=== PATIENT | female | born 1945 | race Caucasian/White ===

== ENCOUNTER 2018-01-03 10:26 | Outpatient (CLI) | payer MEDICARE, MEDICAID ==
--- NOTE | 2018-01-03 15:48 | Diagnostic Imaging Report ---
Clinical Indication: Cough, shortness of breath, wheezing Technique: Spiral acquisitions obtained through the chest. No IV contrast utilized, per referring physician request. Multiplanar reconstructions generated. Total dose length product 515.93 mGycm. CTDIvol(s) 17.01 mGy. Dose reduction achieved using automated exposure control Comparison: none Findings: The lungs demonstrate some posterior dependent atelectatic changes. Linear atelectasis and/or scarring is seen in the inferomedial right middle lobe and inferior lingula. Minimal fibronodular scarring is seen in the bilateral lung apices. The lungs are otherwise clear, no infiltrates, effusions, masses, or nodules. The heart size is normal. No pericardial effusion. No mediastinal or hilar mass or adenopathy. Included portions of the thyroid are unremarkable. No axillary or chest wall mass or adenopathy. The bones are unremarkable except for very mild degenerative thoracic spondylosis changes. The included upper abdominal anatomy is remarkable for bilateral lobulated renal contours. Impression: Minimal pulmonary parenchymal atelectasis and possibly some scarring. No acute or significant thoracic abnormality Minimal degenerative spondylosis incidentally noted The CT scanner at [facility] is accredited by the [employer] and the scans are performed using protocols designed to limit radiation exposure to as low as reasonably achievable to attain images of sufficient resolution adequate for diagnostic evaluation.
== END 2018-01-03 12:26 | disposition home or self-care (01) ==
LOC: CAT 10:26
DX: R05 Cough (principal); R06.02 Shortness of breath; R06.2 Wheezing; M47.894 Other spondylosis, thoracic region
CPT/HCPCS: 71250

== ENCOUNTER 2020-10-22 14:23 | Emergency (ER) | payer MEDICARE, MEDICAID ==
[~2020-10-22] VITALS: Ht 160 cm; Wt 56.7 kg
--- NOTE | 2020-10-22 14:40 | NUR ---
ED Nurse Note: pT REPORTS DIARRHEA AND STOMACH PAIN. ERMD AT BEDSIDE SPEAKING WITH PT.
--- NOTE | 2020-10-22 14:47 | NUR ---
ED Nurse Note: pT AMBULATED TO ED C/O WEAKNESS, DIZZINESS, AND LOSS OF APPETITE FOR 2 WEEKS. PT AMBULATED TO ED FROM CLINIC WITH CLINIC NURSE ASSISTING HER
[2020-10-22 14:48] VITALS: BP 131/58
--- NOTE | 2020-10-22 14:51 | NUR ---
ED Nurse Note: XRAY AT BEDSIDE
--- NOTE | 2020-10-22 15:02 | Emergency Room Report ---
History of Present Illness General Chief Complaint: Generalized Weakness Source: Patient Present Illness HPI 75-year-old female with history of hypertension and polycythemia not on medication or chemotherapy here with 2 weeks of generalized weakness and several days of vomiting and diarrhea. Vomiting has been nonbilious nonbloody. Diarrhea has been loose stool without any signs of GI bleeding such as melanotic stool or bright red blood. Patient has had mild generalized abdominal discomfort. Does not know whether she has been in contact with any sick individuals. Denies fevers, chills, chest pain, palpitation, shortness of breath, back pain, dysuria. Allergies: Coded Allergies: NITROGLYCERIN (Verified Allergy, Unknown, 10/22/20) COVID-19 Screening Contact w/high risk pt: No Experienced COVID-19 symptoms?: No COVID-19 Testing performed CHECK CASHIER: No Nursing Documentation-PMH Hx Hypertension: Yes Hx Diabetes: Yes Review of Systems All Other Systems: negative except mentioned in HPI Physical Exam Vital Signs Date Time Temp Pulse Resp B/P (MAP) Pulse Ox O2 Delivery O2 Flow Rate FiO2 10/22/20 14:33 98.2 73 18 131/58 (82) 95 Room Air Sp02 EP Interpretation: reviewed, normal General Appearance: no apparent distress, alert, non-toxic Head: normocephalic, atraumatic Eyes: bilateral eye normal inspection, bilateral eye PERRL ENT: hearing grossly normal, normal pharynx, no angioedema, normal voice Neck: full range of motion, supple/symm/no masses Respiratory: chest non-tender, lungs clear, normal breath sounds, speaking full sentences Cardiovascular #1: regular rate, rhythm, no edema Cardiovascular #2: 2+ carotid (R), 2+ carotid (L), 2+ radial (R), 2+ radial (L), 2+ dorsalis pedis (R), 2+ dorsalis pedis (L) Gastrointestinal: normal bowel sounds, non tender, soft, non-distended, no guarding, no rebound Rectal: deferred Genitourinary: normal inspection, no CVA tenderness Musculoskeletal: back normal, normal range of motion, gait/station normal, non- tender Neurologic: alert, motor strength/tone normal, oriented x3, sensory intact, responsive, speech normal Psychiatric: judgement/insight normal, memory normal, mood/affect normal, no suicidal/homicidal ideation Lymphatic: no adenopathy Medical Decision Making Diagnostic Impression: Primary Impression: Vomiting Additional Impressions: Dehydration Hypertension ER Course Chest x-ray: CXR: No infiltrate/effusion. Mediastinum within normal limits. No consolidations. No free air under the diaphragm. No bony abnormalities EKG: NSR, no ischemia, left bundle branch block. Rate 70 bpm. No ectopy Rhythm strip: patient monitored for arrhythmias - no malignant dysrhythmias, runs of PVCs, nor pauses noted Laboratory Tests Test 10/22/20 15:00 10/22/20 16:00 White Blood Count 14.1 K/UL (4.8-10.8) H Red Blood Count 3.59 M/UL (4.20-5.40) L Hemoglobin 13.3 G/DL (12.0-16.0) Hematocrit 36.9 % (37.0-47.0) L Mean Corpuscular Volume 103 FL (80-99) H Mean Corpuscular Hemoglobin 36.9 PG (27.0-31.0) H Mean Corpuscular Hemoglobin Concent 35.9 G/DL (32.0-36.0) Red Cell Distribution Width 18.9 % (11.6-14.8) H Platelet Count 584 K/UL (150-450) H Mean Platelet Volume 7.6 FL (6.5-10.1) Neutrophils (%) (Auto) % (45.0-75.0) Lymphocytes (%) (Auto) % (20.0-45.0) Monocytes (%) (Auto) % (1.0-10.0) Eosinophils (%) (Auto) % (0.0-3.0) Basophils (%) (Auto) % (0.0-2.0) Differential Total Cells Counted 100 Neutrophils % (Manual) 85 % (45-75) H Lymphocytes % (Manual) 14 % (20-45) L Monocytes % (Manual) 1 % (1-10) Eosinophils % (Manual) 0 % (0-3) Basophils % (Manual) 0 % (0-2) Band Neutrophils 0 % (0-8) Platelet Estimate Increased H Platelet Morphology Normal Giant Platelets Occasional Anisocytosis 2+ Microcytosis Occasional Macrocytosis 1+ Sodium Level 125 MMOL/L (136-145) L Potassium Level 4.0 MMOL/L (3.5-5.1) Chloride Level 94 MMOL/L (98-107) L Carbon Dioxide Level 23 MMOL/L (21-32) Anion Gap 8 mmol/L (5-15) Blood Urea Nitrogen 22 mg/dL (7-18) H Creatinine 0.8 MG/DL (0.55-1.30) Estimated Glomerular Filtration Rate > 60 mL/min (>60) Glucose Level 143 MG/DL (74-106) H Calcium Level 8.7 MG/DL (8.5-10.1) Total Bilirubin 0.6 MG/DL (0.2-1.0) Aspartate Amino Transferase (AST) 33 U/L (15-37) Alanine Aminotransferase (ALT) 28 U/L (12-78) Alkaline Phosphatase 78 U/L (46-116) Troponin I 0.004 ng/mL (0.000-0.056) Total Protein 7.0 G/DL (6.4-8.2) Albumin 3.2 G/DL (3.4-5.0) L Globulin 3.8 g/dL Albumin/Globulin Ratio 0.8 (1.0-2.7) L Urine Color Pale yellow Urine Appearance Clear Urine pH 6.5 (4.5-8.0) Urine Specific [place] 1.005 (1.005-1.035) Urine Protein Negative (NEGATIVE) Urine Glucose (UA) 3+ (NEGATIVE) H Urine Ketones Negative (NEGATIVE) Urine Blood Negative (NEGATIVE) Urine Nitrite Negative (NEGATIVE) Urine Bilirubin Negative (NEGATIVE) Urine Urobilinogen Normal MG/DL (0.0-1.0) Urine Leukocyte Esterase 1+ (NEGATIVE) H Urine RBC 0-2 /HPF (0 - 2) Urine WBC 5-10 /HPF (0 - 2) H Urine Squamous Epithelial Cells Moderate /LPF (NONE/OCC) H Urine Bacteria Few /HPF (NONE) 75-year-old female with history of hypertension here with several days of vomiting and diarrhea. Patient was hemodynamically stable with completely normal vital signs in the emergency department. She was given IV Zofran with complete resolution of her symptoms. Was given 1 L of IV normal saline so that she felt much improved. She had a mild leukocytosis but otherwise her CBC was within normal limits. CMP normal as well. EKG, troponin, chest x-ray all unremarkable. Urinalysis normal. Patient said that she felt improved and was wishing to leave. She was told to come back to the emergency department with worsening symptoms. Given a prescription for Zofran and told to follow-up with her primary care provider. Discharged in stable condition. Last Vital Signs Date Time Temp Pulse Resp B/P (MAP) Pulse Ox O2 Delivery O2 Flow Rate FiO2 10/22/20 14:48 98.2 73 18 131/58 95 Room Air Scripts Ondansetron Odt* (ZOFRAN ODT*) 8 Mg Tab.rapdis 8 MG ORAL Q6H PRN for Nausea & Vomiting, #12 TAB Prov: Arnaldo Wright M.D. 10/22/20 Arnaldo Wright M.D. Oct 22, 2020 15:02
[2020-10-22 15:27] LABS: HEMATOCRIT 36.9 % (37.0-47.0); HEMOGLOBIN 13.3 G/DL (12.0-16.0); MEAN CORPUSCULAR VOLUME 103 FL (80-99); PLATELET COUNT 584 K/UL (150-450); RED BLOOD COUNT 3.59 M/UL (4.20-5.40); RED CELL DISTRIBUTION WIDTH 18.9 % (11.6-14.8); WHITE BLOOD COUNT 14.1 K/UL (4.8-10.8)
[2020-10-22 15:41] LABS: ANION GAP 8 mmol/L (5-15); BLOOD UREA NITROGEN 22 mg/dL (7-18); CALCIUM 8.7 MG/DL (8.5-10.1); CARBON DIOXIDE 23 MMOL/L (21-32); CHLORIDE 94 MMOL/L (98-107); CREATININE 0.8 MG/DL (0.55-1.30); SODIUM 125 MMOL/L (136-145)
[2020-10-22 15:46] LABS: ALANINE AMINOTRANSFERASE 28 U/L (12-78); ALBUMIN 3.2 G/DL (3.4-5.0); ALBUMIN/GLOBULIN RATIO 0.8 (1.0-2.7); ALKALINE PHOSPHATASE 78 U/L (46-116); ASPARTATE AMINO TRANSFERASE 33 U/L (15-37); BILIRUBIN,TOTAL 0.6 MG/DL (0.2-1.0)
[2020-10-22 16:15] LABS: APPEARANCE,URINE CLEAR; BILIRUBIN, URINE NEGATIVE (NEGATIVE); COLOR,URINE PALE YELLOW; GLUCOSE, URINE (UA) 3+ (NEGATIVE); KETONES,URINE NEGATIVE (NEGATIVE); LEUKOCYTE ESTERASE ,URINE 1+ (NEGATIVE); NITRITE,URINE NEGATIVE (NEGATIVE); PH,URINE 6.5 (4.5-8.0); PROTEIN,URINE NEGATIVE (NEGATIVE); UROBILINOGEN,URINE NORMAL MG/DL (0.0-1.0)
[2020-10-22 16:38] VITALS: BP 133/62
--- NOTE | 2020-10-22 16:44 | Diagnostic Imaging Report ---
Indication: Reason For Exam: WEAK Technique: One view of the chest Comparison: none Findings: Lungs and pleural spaces are clear except for minimal atelectasis at the left lung base. Heart size is normal. Impression: No acute process
[2020-10-22] MEDS ORDERED: ZOFRAN ODT8 MG ORAL (17:23)
[2020-10-22 17:27] VITALS: BP 125/71
--- NOTE | 2020-10-22 17:27 | NUR ---
ER DISCHARGE NOTE: Patient is cleared to be discharged per ERMD, pt is aox4, on room air, with stable vital signs. pt was given dc and prescription instructions, pt was able to verbalize understanding, pt id band and iv site removed without complications. pt is able to ambulate with steady gait. pt took all belongings.
== END 2020-10-22 17:27 | disposition home or self-care (01) ==
LOC: EMR 14:55
DX: R11.10 Vomiting, unspecified (principal); E86.0 Dehydration; I10 Essential (primary) hypertension; E11.9 Type 2 diabetes mellitus without complications; Z88.8 Allergy status to other drugs, medicaments and biological substances
CPT/HCPCS: 36415; 71045; 80053; 81003; 84484; 85007; 85025; 93005; 96361; 96374; 99284; J2405; J7030; J7040